=== PATIENT | male | born 1995 | race African-American/Black ===

== ENCOUNTER 2016-06-14 14:59 | Emergency (ER) | payer OTHER ==
[~2016-06-14] VITALS: Ht 165.1 cm; Wt 77.3 kg
[2016-06-14 15:01] VITALS: BP 137/73; PULSE 85; RESP 18; TEMP 98.8; O2SAT 98
--- NOTE | 2016-06-14 15:17 | PD ---
Physical Exam Date Seen by Provider: Jun 14, 2016 Time Seen by Provider: 15:13 Narrative 21 y/o male with several day hx of Sore Throat and Chest congestion. Patient denies Fever, Heartburn, Difficulty swallowing, or chest pain. patient denies ARCE or Sinus congestion. Non-smoker. Has not taken any tylenol or motrin. V/S Stable Patient waiting bed placement. Data Data Last Documented VS Vital Signs Date Time Temp Pulse Resp B/P Pulse Ox O2 Delivery O2 Flow Rate FiO2 06/14/16 15:01 98.8 85 18 137/73 98 Room Air [facility] Medical Record Reviewed: Yes Supervised Visit with TONE: Yes Scripts No Active Prescriptions or Reported Meds Condition: Stable Yobany Seth Jun 14, 2016 15:17
--- NOTE | 2016-06-14 15:27 | PD ---
HPI Chief Complaint: ENT Complaint Time Seen by Provider: 15:26 Travel History International Travel<30 days: No Contact w/Intl Traveler<30days: No Traveled to known affect area: No History of Present Illness HPI 21-year-old male presents to the emergency department with complaint of sore throat that started last Thursday with worsening over the past 3 days. Denies lump in throat, difficulty swallowing, and usual drooling. Reports painful swallowing. Denies fever, chills, nausea, vomiting. Denies ear pain. Denies headache, abdominal pain. Reports occasional cough. Reports voice is hoarse. Denies chest pain, shortness of breath. Has tried qewa-sai-yvdorlz medications with no relief of symptoms. Someone in his double-team also had a sore throat. No known allergies. No other modifying factors or associated signs and symptoms. [facility] Social History Alcohol Use: No Tobacco Use: No Allergies-Medications (Allergen,Severity, Reaction): Coded Allergies: No Known Allergies (Unverified , 06/14/16) Reported Meds & Prescriptions Reported Meds & Active Scripts Active No Active Prescriptions or Reported Medications Review of Systems Except as stated in HPI: all other systems reviewed are Neg Physical Exam Narrative GENERAL: Well-nourished, well-developed male patient, in no acute distress; afebrile, nontoxic-appearing SKIN: Warm and dry. No rash. HEAD: Atraumatic. Normocephalic. EYES: Pupils equal and round at 3 mm with brisk reaction. No scleral icterus. No injection or drainage. PERRLA. ENT: Mucosa pink and moist. Oropharynx with erythema; without edema or exudates. No uvular edema. No uvular, palatal, or tonsillar deviation. Airway patent. With his worse. EARS: Bilateral pinnae and external canals appear within normal limits. Bilateral tympanic membranes without erythema, dullness or perforation. NECK: Trachea midline. Anterior cervical lymphadenopathy and with tenderness on palpation. CARDIOVASCULAR: Regular rate and rhythm. No murmur appreciated. RESPIRATORY: No accessory muscle use. Clear to auscultation. Breath sounds equal bilaterally. GASTROINTESTINAL: Abdomen soft, non-tender, nondistended. Hepatic and splenic margins not palpable. Bowel sounds are active 4 quadrants. MUSCULOSKELETAL: No obvious deformities. No clubbing. No cyanosis. No edema. NEUROLOGICAL: Awake and alert. Oriented 3. No obvious cranial nerve deficits. Motor grossly within normal limits. Normal speech. Moves all extremities. 5/5 strength to all extremities. PSYCHIATRIC: Appropriate mood and affect; insight and judgment normal. Data Data Last Documented VS Vital Signs Date Time Temp Pulse Resp B/P Pulse Ox O2 Delivery O2 Flow Rate FiO2 06/14/16 15:01 98.8 85 18 137/73 98 Room Air Orders Group A Rapid Strep Screen (06/14/16 15:26) Strep Culture (Group A) (06/14/16 15:28) MDM Medical Decision Making Medical Screen Exam Complete: Yes Emergency Medical Condition: Yes Medical Record Reviewed: Yes Differential Diagnosis Viral pharyngitis, strep pharyngitis, less likely peritonsillar abscess Narrative Course 21-year-old male with sore throat and 3 days. Patient is afebrile. Denies lump in his throat, difficulty swallowing, unusual drooling. Denies fever, chills, nausea, vomiting. Oropharynx is with erythema but without exudate or edema. Rapid strep ordered. 1555: Rapid strep negative. Ibuprofen and Magic mouthwash prescribed for home. Patient verbalizes understanding and agreement with treatment plan. Patient is medically cleared and stable for discharge. Discussed reasons to return to the emergency department. Instructed patient to follow up with primary care provider. Patient agrees with treatment plan. The patients vital signs are stable and the patient is stable for outpatient follow-up and treatment. Patient discharged home, stable and in no acute distress. Diagnosis Primary Impression: Viral pharyngitis Referrals: Primary Care Physician Patient Instructions: General Instructions, Pharyngitis (ED) Departure Forms: School Release, Return to School Date: Jun 16, 2016 Tests/Procedures Additional Instructions: Take Antibiotics as prescribed and complete full course of antibiotics Get plenty of sleep/rest Rest your voice Drink plenty of fluids to prevent dehydration Use warm saltwater gargles to soothe throat pain Use an air humidifier/turn off ceiling fans Use throat lozenges as needed for sore throat Use ibuprofen or acetaminophen as needed to relieve pain and fever Follow-up with your primary care provider Return immediately to the emergency department with worsening of symptoms Scripts Zztheignffgrmem-Yiehtmnne-Cud-Alum-Simeth Liq (Magic Mouthwash Pediatric/Adult Liq)60 Ml Susp5 Ml SWISH-SPIT Q3HR PRN (SORE THROAT) #60 ML Ref 0 Each 5mL contains: Diphenydramine 4.5mg, Viscous Lidocaine 2% 10mg, Maalox Advanced Regular Strength 2.7ml Prov:Earlene Antonio 06/14/16 Ibuprofen 800 Mg [id number] Mg PO Q6HR PRN (PAIN) #30 TAB Ref 0 Prov:Earlene Antonio 06/14/16 Disposition: 01 DISCHARGE HOME Condition: Stable Earlene Antonio Jun 14, 2016 15:27
[2016-06-14] MEDS ORDERED: IBUP800T23 PO (15:54)
[2016-06-14] MEDS ORDERED: MAGICPED SWISH-SPIT (15:54)
== END 2016-06-14 16:17 | disposition home or self-care (01) ==
LOC: NEPK 14:59
DX: J02.8 Acute pharyngitis due to other specified organisms (principal); B97.89 Other viral agents as the cause of diseases classified elsewhere
CPT/HCPCS: 87081; 87880; 99283

== ENCOUNTER 2016-11-18 18:25 | Emergency (ER) | payer OTHER ==
[~2016-11-18] VITALS: Ht 167.6 cm; Wt 70.0 kg
[~2016-11-18 18:25] MED LIST: IBUP800T23 PO; MAGICPED SWISH-SPIT
[2016-11-18 18:27] VITALS: BP 136/60; PULSE 70; RESP 15; TEMP 98; O2SAT 98
--- NOTE | 2016-11-18 19:58 | PD ---
HPI Chief Complaint: Skin Problem Time Seen by Provider: 19:25 Travel History International Travel<30 days: No Contact w/Intl Traveler<30days: No Traveled to known affect area: No History of Present Illness HPI 21-year-old male presents to emergency department for a painful lesion near his rectum. Patient states he noticed it 3 days ago when he was wiping following a bowel movement. Denies any trauma. He does not have anal intercourse. He does lift weights and has had hard bowel movements. Denies any fever or chills. No abdominal pain. No other symptoms to report. History Past Medical Histgory Medical History: Denies Significant Hx Social History Alcohol Use: No Tobacco Use: No Allergies-Medications (Allergen,Severity, Reaction): Coded Allergies: No Known Allergies (Unverified , 06/14/16) Reported Meds & Prescriptions Reported Meds & Active Scripts Active Magic Mouthwash Pediatric/Adult Liq (Lidocaine/Diphenhydr/Alum/Mg/Simeth) 60 Ml Susp 5 Ml SWISH-SPIT Q3HR PRN Each 5mL contains: Diphenydramine 4.5mg, Viscous Lidocaine 2% 10mg, Maalox Advanced Regular Strength 2.7ml Ibuprofen 800 Mg Tab 800 Mg PO Q6HR PRN Review of Systems Except as stated in HPI: all other systems reviewed are Neg Physical Exam Narrative GENERAL: Well-nourished, well-developed male patient in no acute distress SKIN: Focused skin assessment warm/dry. HEAD: Normocephalic. EYES: No scleral icterus. No injection or drainage. NECK: Supple, trachea midline. No JVD or lymphadenopathy. CARDIOVASCULAR: Regular rate and rhythm without murmurs, gallops, or rubs. RESPIRATORY: Breath sounds equal bilaterally. No accessory muscle use. GASTROINTESTINAL: Abdomen soft, non-tender, nondistended. No guarding. No rebound tenderness. RECTAL EXAM: Small external hemorrhoid noted MUSCULOSKELETAL: No cyanosis, or edema. BACK: Nontender without obvious deformity. No CVA tenderness. Data Data Last Documented VS Vital Signs Date Time Temp Pulse Resp B/P (MAP) Pulse Ox O2 Delivery O2 Flow Rate FiO2 11/18/16 18:27 98.0 70 15 136/60 (85) 98 MDM Medical Screen Exam Complete: Yes Emergency Medical Condition: No Differential Diagnosis external hemorrhoid Narrative Course 21-year-old male presents to the most pertinent for evaluation. Physical exam is consistent with an external hemorrhoid. I have counseled the patient on care , encouraged dsni-gux-[id number] remedy, at this time there are no urgent or emergent needs for medical intervention identified. A medical screening exam was performed: At the time of evaluation the presenting medical condition was determined not to be of an emergent nature. The patient was given the option of receiving additional care, but declined. Patient was given options for additional community resources from which to obtain care. The Patient Has Been advised to seek medical attention for their presenting complaint. The patient has been advised to return to the ER at any time if an emergent condition develops. Primary Impression: Encounter for medical screening examination Condition: Stable Ngozi Browning Nov 18, 2016 19:58
== END 2016-11-18 20:03 | disposition left against medical advice (07) ==
LOC: NEPK 18:25
DX: Z00.00 Encounter for general adult medical examination without abnormal findings (principal); K64.4 Residual hemorrhoidal skin tags
CPT/HCPCS: 99281

== ENCOUNTER 2017-04-16 09:44 | Emergency (ER) | payer OTHER ==
[~2017-04-16 09:44] MED LIST changes: +IBUP1TAB7 PO; -IBUP800T23 PO
[2017-04-16 09:46] VITALS: BP 129/70; PULSE 76; RESP 14; TEMP 98.4; O2SAT 100
[2017-04-16] MEDS ORDERED: DICL50TA PO (10:28)
[2017-04-16] MEDS ORDERED: ROBA750T PO (10:28)
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
== END 2017-04-16 10:39 | disposition home or self-care (01) ==
LOC: NEPK 09:44
DX: S16.1XXA Strain of muscle, fascia and tendon at neck level, initial encounter (principal); V43.52XA Car driver injured in collision with other type car in traffic accident, initial encounter; Y92.414 Local residential or business street as the place of occurrence of the external cause
CPT/HCPCS: 99283